=== PATIENT | female | born 1975 | race Hispanic/Latino ===

== ENCOUNTER 2016-08-14 14:58 | Emergency (ER) | payer OTHER ==
[2016-08-14 15:17] VITALS: BP 115/72; PULSE 58; RESP 18; TEMP 98.5; O2SAT 99
[2016-08-14] MEDS ORDERED: TDAP Vaccine 0.5 mL Syr IM ONE (15:56)
--- NOTE | 2016-08-14 16:00 | ED PDOC ---
Upper Extremity Pain/Injury Time Seen by Provider: 08/14/16 15:23 Chief Complaint (Nursing): Abnormal Skin Integrity Chief Complaint (Provider): Abnormal Skin Integrity History Per: Patient History/Exam Limitations: no limitations Onset/Duration Of Symptoms: Hrs (x1.5) Additional Complaint(s): Paulina Larsen, 40 year old female presents to the ED on 08/14/16 with a laceration to her right third digit while slicing zhumberto on a [employer] slicer an hour and a half prior to arrival. The patient reports minor pain stating it to be a 2 /3. Of note, the patients Tetanus is not up to date. Past Medical History Reviewed: Historical Data, Nursing Documentation, Vital Signs Vital Signs: Last Vital Signs Temp 98.5 F 08/14/16 15:13 Pulse 58 L 08/14/16 15:13 Resp 18 08/14/16 15:13 BP 115/72 08/14/16 15:13 Pulse Ox 99 08/14/16 15:13 - Medical History PMH: No Chronic Diseases - Family History Family History: States: Unknown Family Hx - Immunization History Hx Tetanus Toxoid Vaccination: No - Home Medications Home Medications: Ambulatory Orders Medication Instructions Recorded Cephalexin [cephalexin] 500 mg PO BID #14 cap 08/14/16 Ibuprofen [Motrin] 600 mg PO Q6 #20 tab 08/14/16 - Allergies Allergies/Adverse Reactions: Allergies Allergy/AdvReac Type Severity Reaction Status Date / Time No Known Allergies Allergy Verified 08/14/16 15:17 Review of Systems ROS Statement: Except As Marked, All Systems Reviewed And Found Negative Musculoskeletal: Positive for: Hand Pain (laceration to right 3rd digit ) Physical Exam - Reviewed Nursing Documentation Reviewed: Yes Vital Signs Reviewed: Yes - Physical Exam Appears: Positive for: Non-toxic, No Acute Distress Head Exam: Positive for: ATRAUMATIC, NORMOCEPHALIC Extremity: Positive for: Other (2 cm avulsion; laceration to right finger pulp; partial avulsion of distal nail plate; no active bleeding ) Neurologic/Psych: Positive for: Alert, Oriented (x3) - ECG O2 Sat by Pulse Oximetry: 99 (RA) Pulse Ox Interpretation: Normal Medical Decision Making Medical Decision Making: Initial Impression: Laceration to right 3rd digit Initial Plan: * TDAP Vaccine 0.5 ml IM Once Laceration irrigated by writer. Wilson administered by BRADY pressure dressing applied Scribe Attestation: Documented by Jodie Gomez, acting as a scribe for Esperanza Buchanan PA-C. Provider Scribe Attestation: All medical record entries made by the Scribe were at my direction and personally dictated by me. I have reviewed the chart and agree that the record accurately reflects my personal performance of the history, physical exam, medical decision making, and the department course for this patient. I have also personally directed, reviewed, and agree with the discharge instructions and disposition. Disposition - Clinical Impression Clinical Impression: Laceration - Patient ED Disposition Is Patient to be Admitted: No - Disposition Disposition: Routine/Home Disposition Time: 16:49 Condition: STABLE Prescriptions: Cephalexin [cephalexin] 500 mg PO BID #14 cap Ibuprofen [Motrin] 600 mg PO Q6 #20 tab Instructions: Laceration Without Closure (ED) - POA Present On Arrival: None
[2016-08-14] MEDS ORDERED: Gelatin Sponge 10 X 12.5 cm (Gelfilm Sterile Non Opthalmic) MM ONE (16:08)
[2016-08-14] MEDS ORDERED: Absorbable Gelatin Sponge Size 12-7 ONE (16:16)
== END 2016-08-14 16:55 | disposition home or self-care (01) ==
LOC: H.ER 14:58
DX: S61.214A Laceration without foreign body of right ring finger without damage to nail, initial encounter (principal); W26.8XXA Contact with other sharp object(s), not elsewhere classified, initial encounter; Y92.000 Kitchen of unspecified non-institutional (private) residence as the place of occurrence of the external cause